=== PATIENT | female | born 1980 | race Caucasian/White ===

== ENCOUNTER 2017-12-16 19:45 | Emergency (ER) | payer OTHER ==
[~2017-12-16] VITALS: Ht 170.2 cm; Wt 81.7 kg
[~2017-12-16 19:45] MED LIST: CLARITIN-D 24 H1 TA1 PO; DAILY VALUE1 EAC1 PO; MULTI-DAY PLUS1 EACH PO; PROTONIX 20 MG20 M1 PO; SLOW FE 160MG160 MG PO; TOPROL XL50 MG PO; TRAZODONE 150150 M1 PO; TRAZODONE HCL50 MG PO; ULTRAM 50MG TAB50 MG PO; VENTOLIN HFA 1818 GM INH; ZOFRAN4 MG PO
[2017-12-16] MEDS ORDERED: HYDROCODONE-AP1 EAC6 PO (22:14)
[2017-12-16] MEDS ORDERED: MEDROLDOSEPACK PO (22:14)
[2017-12-16] MEDS ORDERED: LIORESAL 10 MG10 MG PO (22:14)
== END 2017-12-16 22:34 | disposition home or self-care (01) ==
LOC: ER 19:45
DX: S13.4XXA Sprain of ligaments of cervical spine, initial encounter (principal); S29.012A Strain of muscle and tendon of back wall of thorax, initial encounter; K21.9 Gastro-esophageal reflux disease without esophagitis; J45.909 Unspecified asthma, uncomplicated; Z88.2 Allergy status to sulfonamides; W10.9XXA Fall (on) (from) unspecified stairs and steps, initial encounter; Y93.89 Activity, other specified; Y92.89 Other specified places as the place of occurrence of the external cause; Y99.8 Other external cause status